=== PATIENT | female | born 1980 | race Caucasian/White ===

== ENCOUNTER 2016-10-23 22:06 | Inpatient (IN) | payer OTHER ==
[~2016-10-23] VITALS: Ht 160 cm; Wt 87.4 kg
[2016-10-23] MEDS ORDERED: DEXTROSE 5% IV ONE (23:15)
[2016-10-23] MEDS ORDERED: ACETYLCYSTEINE IV ONE (23:15)
[2016-10-23] MEDS: ACETYLCYSTEINE 9,000 MG in DEXTROSE 5% 1,000 ML IV ONE (23:15)
[2016-10-23] MEDS ORDERED: ACETYLCYSTEINE 4,500 MG in DEXTROSE 5% 500 ML IV ONE (23:15)
[2016-10-24] MEDS ORDERED: ONDANSETRON 4 MG VIAL ONE (01:35)
[2016-10-24] MEDS ORDERED: DIPHENHYDRAMINE 50 MG/ML VIAL ONE (01:35)
[2016-10-24] MEDS: SALINE FLUSH 10 ML FLUSH SCH ×3 (01:50→20:00)
[2016-10-24] MEDS ORDERED: SODIUM CHLORIDE 0.9% 1,000 ML IV SCH (01:50)
[2016-10-24] MEDS ORDERED: ACETYLCYSTEINE IV ONE (01:50)
[2016-10-24] MEDS ORDERED: DEXTROSE 5% IV ONE (01:50)
[2016-10-24] MEDS ORDERED: SALINE FLUSH 10 ML FLUSH PRN (01:50)
[2016-10-24] MEDS: SODIUM CHLORIDE 0.9% FLUSH BAG 500 ML IV SCH ×2 (02:50→20:52)
[2016-10-24 03:27] VITALS: BP_SYST 115; RESP 17; TEMP 97.6
[2016-10-24 04:02] VITALS: Ht 160 cm; Wt 87.4 kg
[2016-10-24 05:29] VITALS: RESP 18
[2016-10-24] MEDS: ACETYLCYSTEINE 9,000 MG in DEXTROSE 5% 1,000 ML IV ONE (07:54)
[2016-10-24 08:09] VITALS: BP_SYST 106; RESP 16; TEMP 98.2
[2016-10-24] MEDS ORDERED: METHOCARBAMOL 750 MG TAB PO PRN (08:45)
[2016-10-24] MEDS: PREGABALIN 100 MG CAPSULE PO SCH ×3 (09:29→20:54)
[2016-10-24] MEDS: MONTELUKAST 10 MG TAB PO SCH (09:29)
[2016-10-24] MEDS: NICOTINE 21 MG/24 HR TRANSDERM SCH (09:29)
[2016-10-24 11:11] VITALS: BP_SYST 106; RESP 16; TEMP 98.4
[2016-10-24 15:18] VITALS: BP_SYST 113; RESP 16; TEMP 98
[2016-10-24] MEDS ORDERED: QUETIAPINE XR 300 MG TAB PO SCH (17:00)
[2016-10-24 20:19] VITALS: BP_SYST 106; RESP 18; TEMP 97.4
[2016-10-24] MEDS ORDERED: ARIPiprazole 15 MG TAB PO SCH (21:00)
[2016-10-24] MEDS ORDERED: ZOLPIDEM 5 MG TAB PO SCH (21:00)
[2016-10-24] MEDS ORDERED: CETIRIZINE 10 MG TAB PO SCH (21:00)
[2016-10-24] MEDS ORDERED: TRAZODONE 100 MG TAB PO SCH (21:00)
[2016-10-25 08:43] VITALS: BP_SYST 109; RESP 18; TEMP 97.9
[2016-10-25] MEDS: MONTELUKAST 10 MG TAB PO SCH (09:00)
[2016-10-25] MEDS: PREGABALIN 100 MG CAPSULE PO SCH (09:00)
[2016-10-25] MEDS: NICOTINE 21 MG/24 HR TRANSDERM SCH (09:01)
[2016-10-25] MEDS: SALINE FLUSH 10 ML FLUSH SCH (09:01)
[2016-10-25 11:45] VITALS: BP_SYST 109; RESP 18; TEMP 97.9
[2016-10-25 12:03] VITALS: BP_SYST 115; RESP 18; TEMP 98.5
== END 2016-10-25 13:40 | disposition home or self-care (01) | DRG 918 ==
LOC: ENRESERVDT → ENRESERVTM → ER 22:06 → ENPENDDIS 10-24 01:50 → EMR 10-24 01:50 → PCU2 10-24 03:39
PROVIDERS: ADMIT Internal Medicine; ATTEND Internal Medicine
DX: T39.1X1A Poisoning by 4-Aminophenol derivatives, accidental (unintentional), initial encounter (principal); F31.9 Bipolar disorder, unspecified; Y92.009 Unspecified place in unspecified non-institutional (private) residence as the place of occurrence of the external cause; G89.29 Other chronic pain; M54.5 Low back pain; K21.9 Gastro-esophageal reflux disease without esophagitis; Z87.891 Personal history of nicotine dependence
CPT/HCPCS: 36415; 80053; 80329; 81001; 83690; 85025; 85610; 85730; 94799; 96365; 96375; 96376; 99222; 99238